=== PATIENT | male | born 1955 | race Caucasian/White ===

== ENCOUNTER 2017-11-29 16:02 | Emergency (ER) | payer OTHER ==
[~2017-11-29] VITALS: Ht 182.9 cm; Wt 86.2 kg
[2017-11-29] MEDS ORDERED: IBUPROFEN 600 MG TABLET PO ONE ×2 (16:29→16:30)
--- NOTE | 2017-11-29 16:30 | NUR ---
pt rec'd to er c/o left leg pain stepped on dog toy and fell. 10 pain AWAITING EVALUATION BY ER PROVIDER.
--- NOTE | 2017-11-29 16:54 | NUR ---
pt given motrin 600 mg po family at bedside xray done
[2017-11-29 17:11] VITALS: BP 144/73
== END 2017-11-29 17:15 | disposition home or self-care (01) ==
LOC: ER 16:08
DX: S76.822A Laceration of other specified muscles, fascia and tendons at thigh level, left thigh, initial encounter (principal); S80.02XA Contusion of left knee, initial encounter; I34.1 Nonrheumatic mitral (valve) prolapse; K21.9 Gastro-esophageal reflux disease without esophagitis; X50.1XXA Overexertion from prolonged static or awkward postures, initial encounter; Y93.89 Activity, other specified; Y92.89 Other specified places as the place of occurrence of the external cause; Y99.8 Other external cause status
CPT/HCPCS: 29505; 73552; 99284; A4606; Z7610